=== PATIENT | male | born 1950 | race Caucasian/White ===

== ENCOUNTER 2018-07-11 10:53 | Emergency (ER) | payer MEDICARE, BC ==
[~2018-07-11] VITALS: Ht 167.6 cm; Wt 70.3 kg
--- NOTE | 2018-07-11 11:10 | NUR ---
PT A/OX4, PRESENTS TO THE ER W/ FAMILY MEMBER C/O L ARM NUMBNESS THAT IS MORE "SEVERE" THAN USUAL. PT STATES HIS LEFT HAND IS "USUALLY TINGLY" BUT HAS BEEN WORSE TODAY. VSS. PT DOES NOT APPEAR TO BE IN ANY APPARENT DISTRESS AT THIS TIME. SECONDARY COMPLAINT: STIFFNESS IN R SIDE OF NECK. PT DENIES PAIN, C/P, SOB, N/V/D, DIZZINESS, HEADACHE. ER MD AT BEDSIDE FOR MSE.
--- NOTE | 2018-07-11 11:20 | NUR ---
ADMINISTRATIVE DIRECTOR AT BEDSIDE.
[2018-07-11 11:24] LABS: BASOPHILS % (AUTO) 0.8 % (0.0-2.0); EOSINOPHILS # (AUTO) 0.2 K/uL (0.0-0.7); EOSINOPHILS % (AUTO) 3.7 % (0.0-7.0); HEMATOCRIT 46.2 % (36.7-47.1); HEMOGLOBIN 16.1 g/dL (12.5-16.3); LYMPHOCYTES # (AUTO) 1.6 K/uL (20.0-40.0); LYMPHOCYTES % (AUTO) 27.1 % (20.5-51.5); MEAN CORPUSCULAR HEMOGLOBIN 32.2 uug (23.8-33.4); MEAN CORPUSCULAR HGB CONC 35 g/dL (32.5-36.3); MEAN CORPUSCULAR VOLUME 92.4 fL (73.0-96.2); MONOCYTES # (AUTO) 0.6 K/uL (2.0-10.0); MONOCYTES % (AUTO) 9.8 % (0.0-11.0); NEUTROPHILS # (AUTO) 3.5 K/uL (1.8-8.9); NEUTROPHILS % (AUTO) 58.6 % (38.5-71.5); PLATELET COUNT (AUTO) 224 K/uL (152-348)
[2018-07-11 11:36] LABS: CREATININE 1.4 mg/dL (0.6-1.3); POTASSIUM 4.4 mmol/L (3.5-5.1)
[2018-07-11 11:49] LABS: BILIRUBIN,DIRECT 0.1 mg/dL (0.0-0.2); BILIRUBIN,TOTAL 0.6 mg/dL (0.2-1.0); TOTAL PROTEIN, SERUM 7.2 g/dL (6.4-8.2)
--- NOTE | 2018-07-11 11:52 | NUR ---
Patient discharged to home in stable conditon. Written and verbal after care instructions given. Patient verbalizes understanding of instructions. ALL BELONGINGS W/ PT. PT SELF-AMBULATED W/O DIFFICULTY. 20G IV ACCESS IN LUE REMOVED PRIOR TO D/C - INNER CANNULA INTACT.
[2018-07-11 11:54] VITALS: BP 135/80
== END 2018-07-11 11:54 | disposition home or self-care (01) ==
LOC: ER 10:53
DX: M54.12 Radiculopathy, cervical region (principal); R07.9 Chest pain, unspecified
CPT/HCPCS: 36415; 70030-TC; 71045; 85025; 85730; 93005; A4663